=== PATIENT | male | born 1960 | race Two or more races ===

== ENCOUNTER 2017-01-08 23:26 | Inpatient (IN) | payer MEDICAID ==
[~2017-01-08] VITALS: Ht 190.5 cm; Wt 104.3 kg
[~2017-01-08 23:26] MED LIST: WARF5TAB77 PO
--- NOTE | 2017-01-09 00:44 | NUR ---
PT BIBSELF AMBULATORY TO ER BED 8 C/OP "ABD PAIN SINCE YESTERDAY MORNING WITH VOMITING X1" PT AOX3 RR EVEN AND UNLABORED. NO SOB NOTED. NAD NOTED. NO NVD AT THIS TIME. PT GOWNED AND PLACED ON MONITOR WAITING FOR MD KENT.
--- NOTE | 2017-01-09 00:45 | NUR ---
DR. YANES AT BEDSIDE FOR EVLA.
--- NOTE | 2017-01-09 01:02 | NUR ---
BLOOD DRAW AND URINE SENT TO LAB.
[2017-01-09] MEDS ORDERED: DILTIAZEM HCL 50 MG IV ONE (01:06)
[2017-01-09 01:18] LABS: BASOPHILS % (AUTO) 0.4 % (0.0-2.0); EOSINOPHILS # (AUTO) 0.8 /CMM (0.0-0.7); EOSINOPHILS % (AUTO) 7.4 % (0.0-6.0); HEMATOCRIT 46 % (39-51); HEMOGLOBIN 15.4 g/dL (13.5-17.5); LYMPHOCYTES # (AUTO) 2.1 /CMM (0.8-4.8); LYMPHOCYTES % (AUTO) 18.9 % (20.0-44.0); MEAN CORPUSCULAR HEMOGLOBIN 29 PG (26.0-33.0); MEAN CORPUSCULAR HGB CONC 33 g/dl (31.0-36.0); MEAN CORPUSCULAR VOLUME 88 fL (80-96); MONOCYTES # (AUTO) 0.6 /CMM (0.1-1.30); MONOCYTES % (AUTO) 5.8 % (2.0-12.0); NEUTROPHILS # (AUTO) 7.6 /CMM (1.8-8.9); NEUTROPHILS % (AUTO) 67.5 % (43.0-81.0); PLATELET COUNT (AUTO) 183 /CMM (150-450); RDW COEFFICIENT OF VARIATION 12.9 (11.5-15.0); RED BLOOD CELL COUNT(AUTO) 5.26 MIL/uL (4.5-6.0); WHITE BLOOD COUNT (AUTO) 11.2 K/uL (4.3-11.0)
[2017-01-09] MEDS ORDERED: DILTIAZEM HCL 50 MG IV IV ONE (01:30)
[2017-01-09 01:31] LABS: CALCIUM, SERUM 9.5 mg/dL (8.5-10.1); POTASSIUM 4.2 mmol/L (3.5-5.1)
--- NOTE | 2017-01-09 01:33 | NUR ---
called in for U/S gallbladder @ 00:55 but was canceled. No one informed me. Confirmed cancellation with Dr. Parra at 01:30.
[2017-01-09 01:36] LABS: APPEARANCE,URINE CLEAR (CLEAR); BILIRUBIN,URINE NEGATIVE (NEGATIVE); BLOOD, URINE NEGATIVE Ery/uL (NEGATIVE); COLOR,URINE YELLOW (YELLOW); KETONES,URINE NEGATIVE (NEGATIVE); LEUKOCYTE ESTERASE ,URINE NEGATIVE (NEGATIVE); NITRITE, URINE NEGATIVE (NEGATIVE); PROTEIN,URINE NEGATIVE (NEGATIVE); UGLUCOSE NEGATIVE (NEGATIVE); UROBILINOGEN,URINE 0.2 EU/dL (0.2)
[2017-01-09 01:37] LABS: BILIRUBIN,DIRECT 0.1 mg/dL (0.0-0.2); BILIRUBIN,TOTAL 0.6 mg/dL (0.2-1.0); TOTAL PROTEIN, SERUM 7.7 g/dL (6.4-8.2)
[2017-01-09 01:39] LABS: TROPONIN I 0.171 ng/mL (0.00-0.056)
[2017-01-09] MEDS ORDERED: FURO20TA4 PO (01:55)
[2017-01-09] MEDS ORDERED: LISI-607 PO (01:55)
[2017-01-09] MEDS ORDERED: OMEP20CA10 PO (01:55)
[2017-01-09] MEDS ORDERED: ASPI-605 PO (01:55)
[2017-01-09] MEDS ORDERED: ONDANSETRON HCL/PF 4 MG/2 ML VIAL ONE (01:57)
[2017-01-09] MEDS ORDERED: MORPHINE SULFATE INJ 2 MG/ML DISP.SYRIN IV ONE (02:00)
[2017-01-09] MEDS ORDERED: ASPIRIN 325 MG TABLET PO ONE (02:00)
[2017-01-09] MEDS ORDERED: ONDANSETRON HCL/PF 4 MG/2 ML VIAL IV ONE (02:00)
[2017-01-09] MEDS ORDERED: MORPHINE SULFATE INJ 10 MG/ML DISP.SYRIN ONE (02:00)
[2017-01-09] MEDS ORDERED: ASPIRIN 325 MG TABLET ONE (02:05)
--- NOTE | 2017-01-09 02:15 | NUR ---
PT ASSIGNED TO [facility] BED 118-2
--- NOTE | 2017-01-09 02:21 | NUR ---
DR. YANES AT BEDSIDE SPEAKING TO PT REGARDING RESULTS.
[2017-01-09] MEDS ORDERED: ZOLPIDEM TARTRATE 5 MG TABLET PO PRN (02:30)
[2017-01-09] MEDS ORDERED: ONDANSETRON HCL/PF 4 MG/2 ML VIAL IVP PRN (02:30)
[2017-01-09] MEDS ORDERED: MAGNESIUM HYDROXIDE 30 ML UDC PO PRN (02:30)
[2017-01-09] MEDS ORDERED: Z GUARD REMEDY 2 OZ OINT TP PRN (02:30)
[2017-01-09] MEDS ORDERED: MAG HYDROX/AL HYDROX/SIMETH 30 ML UDC PO PRN (02:30)
[2017-01-09] MEDS ORDERED: ACETAMINOPHEN 325 MG TABLET PO PRN (02:30)
--- NOTE | 2017-01-09 02:31 | NUR ---
REPORT GIVEN LISET AGUSTIN FOR BED 118-2
[2017-01-09 02:40] VITALS: BP 135/81
--- NOTE | 2017-01-09 02:44 | NUR ---
PT TRANSFERRED PER ACLS PROTOCOL.
[2017-01-09] MEDS ORDERED: IV NS 0.9% 1,000 ML IV ONE (03:00)
--- NOTE | 2017-01-09 03:00 | NUR ---
FAMILY LITERACY COORDINATOR INITIAL NOTE PT ARRIVED ON FLOOR IN NO ACUTE DISTRESS AT THIS TIME. ON TELE WITH Page-ERINER 104. PT IS A/O X4 AND ABLE TO MAKE NEEDS KNOWN BUT MAINLY URDU SPEAKING. SON AT BEDSIDE. PT IS ABLE TO WALK TO BED FROM BATHROOM. BREATHING IS NORMAL WITH ADEQUATE CHEST RISE/FALL. HAS RAC 18G THAT IS CLEAN DRY AND INTACT RUNNING NS @100CC. COMFORT AND SAFETY MEASURES TO BE ENSURED DURING THE SHIFT. WILL CONTINUE TO MONITOR FOR ANY CHANGES.
[2017-01-09] MEDS ORDERED: MAGNESIUM HYDROXIDE 30 ML UDC ONE (03:30)
[2017-01-09] MEDS ORDERED: HYDROCODONE/APAP 5/325MG 1 EACH TABLET ONE (03:30)
[2017-01-09] MEDS: HYDROCODONE/APAP 5/325MG 1 EACH TABLET PO PRN ×2 (03:31→16:20)
[2017-01-09 04:00] VITALS: BP 126/84
[2017-01-09 07:21] LABS: BASOPHILS % (AUTO) 0.1 % (0.0-2.0); EOSINOPHILS # (AUTO) 0.9 /CMM (0.0-0.7); EOSINOPHILS % (AUTO) 9.3 % (0.0-6.0); HEMATOCRIT 42 % (39-51); HEMOGLOBIN 14.4 g/dL (13.5-17.5); LYMPHOCYTES # (AUTO) 1.6 /CMM (0.8-4.8); LYMPHOCYTES % (AUTO) 16.4 % (20.0-44.0); MEAN CORPUSCULAR HEMOGLOBIN 30 PG (26.0-33.0); MEAN CORPUSCULAR HGB CONC 34 g/dl (31.0-36.0); MEAN CORPUSCULAR VOLUME 87 fL (80-96); MONOCYTES # (AUTO) 0.6 /CMM (0.1-1.30); MONOCYTES % (AUTO) 6.3 % (2.0-12.0); NEUTROPHILS # (AUTO) 6.5 /CMM (1.8-8.9); NEUTROPHILS % (AUTO) 67.9 % (43.0-81.0); PLATELET COUNT (AUTO) 167 /CMM (150-450); RDW COEFFICIENT OF VARIATION 13.1 (11.5-15.0); WHITE BLOOD COUNT (AUTO) 9.6 K/uL (4.3-11.0)
--- NOTE | 2017-01-09 07:30 | NUR ---
RN FERMÍN RECEIVED PATIENT AWAKE, LYING ON BED WITH ON GOING IVF RUNNING AT 100 ML AFEBRILE NO CHEST PAIN AT THE MOMENT ENCOURAGED TO REST MONITORED ACCORDINGLY
[2017-01-09 07:38] LABS: CALCIUM, SERUM 8.6 mg/dL (8.5-10.1); CREATININE 0.9 mg/dL (0.6-1.3); MAGNESIUM 2.2 mg/dL (1.8-2.4); PHOSPHORUS 3.8 mg/dL (2.5-4.9); POTASSIUM 4.1 mmol/L (3.5-5.1)
[2017-01-09 08:00] VITALS: BP_SYST 127; BP_SYST 148; BP_DIAS 79; BP_DIAS 80
[2017-01-09] MEDS ORDERED: FUROSEMIDE 20 MG TABLET PO SCH (09:00)
[2017-01-09 09:11] LABS: INR 1.45 (0.87-1.13); PROTHROMBIN TIME 15.1 SECS (9.5-12.7)
[2017-01-09] MEDS: methylPREDNISolone SOD SUCC 40 MG/ML VIAL IV SCH (09:19)
[2017-01-09] MEDS: PANTOPRAZOLE 40 MG TABLET.DR PO SCH (09:19)
[2017-01-09] MEDS: ASPIRIN EC 81 MG TABLET.DR PO SCH (09:20)
[2017-01-09] MEDS: LISINOPRIL (5MG) 5 MG TABLET PO SCH (09:20)
[2017-01-09 09:49] LABS: EOSINOPHILS % (MANUAL) 7 % (0-4); LYMPHOCYTES % (MANUAL) 9 % (16-48); MONOCYTES % (MANUAL) 7 % (0-11.0); NEUTROPHILS % (MANUAL) 77 (42-76)
[2017-01-09 12:00] VITALS: BP 127/79
[2017-01-09] MEDS ORDERED: DILTIAZEM HCL CD 240 MG PO SCH (14:00)
[2017-01-09 14:05] LABS: THYROID STIMULATING HORMONE 2.31 uIU/mL (0.358-3.74)
[2017-01-09 14:45] LABS: MAGNESIUM 2.1 mg/dL (1.8-2.4)
[2017-01-09 16:00] VITALS: BP_SYST 120; BP_SYST 124; BP_DIAS 79; BP_DIAS 81
[2017-01-09] MEDS: DILTIAZEM HCL CD 240 MG PO SCH (16:12)
[2017-01-09] MEDS ORDERED: WARFARIN SODIUM 5 MG TABLET PO SCH (17:00)
[2017-01-09 20:00] VITALS: BP 135/86
[2017-01-09] MEDS: MUPIROCIN OINT 2% 22 GM TUBE SCH (20:56)
[2017-01-09] MEDS: ENOXAPARIN SODIUM 100 MG/ML DISP.SYRIN SQ SCH (20:57)
[2017-01-10] VITALS: BP 109/72
--- NOTE | 2017-01-10 01:11 | NUR ---
WHEAT AND OATS FLAKE MILLER; REPORT GIVEN TO RN FOR CONTINUITY OF CARE. PT IS STABLE, COMFORTABLY RESTING. DENIED CHEST PAIN. PT IS AMBULATORY, AFLUTTER ON MONITOR.
[2017-01-10 04:00] VITALS: BP 144/69
[2017-01-10 06:31] LABS: BASOPHILS % (AUTO) 0.1 % (0.0-2.0); EOSINOPHILS % (AUTO) 0.4 % (0.0-6.0); HEMATOCRIT 44 % (39-51); HEMOGLOBIN 14.9 g/dL (13.5-17.5); LYMPHOCYTES # (AUTO) 1.4 /CMM (0.8-4.8); LYMPHOCYTES % (AUTO) 11.8 % (20.0-44.0); MEAN CORPUSCULAR HEMOGLOBIN 30 PG (26.0-33.0); MEAN CORPUSCULAR HGB CONC 34 g/dl (31.0-36.0); MEAN CORPUSCULAR VOLUME 88 fL (80-96); MONOCYTES # (AUTO) 0.6 /CMM (0.1-1.30); MONOCYTES % (AUTO) 5.1 % (2.0-12.0); NEUTROPHILS # (AUTO) 9.7 /CMM (1.8-8.9); NEUTROPHILS % (AUTO) 82.6 % (43.0-81.0); PLATELET COUNT (AUTO) 184 /CMM (150-450); RDW COEFFICIENT OF VARIATION 12.9 (11.5-15.0); RED BLOOD CELL COUNT(AUTO) 5.03 MIL/uL (4.5-6.0); WHITE BLOOD COUNT (AUTO) 11.8 K/uL (4.3-11.0)
--- NOTE | 2017-01-10 06:40 | NUR ---
ETHNIC STUDIES PROFESSOR CLOSING NOTE ENDORSED PT IN NO ACUTE DISTRESS AT THIS TIME. ON TELE WITH AFLUTTER 80' PT IS A/O X4 AND ABLE TO MAKE NEEDS KNOWN BUT MAINLY UKRAINIAN SPEAKING. PT IS ABLE TO WALK TO BED FROM BATHROOM. BREATHING IS NORMAL WITH ADEQUATE CHEST RISE/FALL. HAS RAC 18G THAT IS CLEAN DRY AND INTACT RUNNING NS @100CC. COMFORT AND SAFETY MEASURES TO BE ENSURED DURING THE SHIFT. WILL CONTINUE TO MONITOR FOR ANY CHANGES.
[2017-01-10 07:03] LABS: CALCIUM, SERUM 9.1 mg/dL (8.5-10.1); MAGNESIUM 2.3 mg/dL (1.8-2.4); PHOSPHORUS 4.1 mg/dL (2.5-4.9); POTASSIUM 4.5 mmol/L (3.5-5.1)
--- NOTE | 2017-01-10 07:15 | NUR ---
RN INITIAL NOTES: REC'D PT AWAKE ON BED, NOT IN ANY DISTRESS, A/O X 4, DENIES ANY PAIN/DISCOMFORT AT THIS TIME. ON ROOM AIR, SATURATING 95%. ON TELEMONITOR, JUDITH. HAS R AC G18 SL, FLUSHING WELL, NO S/SX OF INFECTION/INFILTRATION NOTED. PROVIDED COMFORT & SAFETY MEASURES. BED KEPT LOW & IN LOCKED POS. CALL LIGHT PLACED W/IN REACH. WILL CONTINUE TO MONITOR AND ATTEND PT NEEDS.
[2017-01-10 08:00] VITALS: BP 136/89
[2017-01-10] MEDS: ASPIRIN EC 81 MG TABLET.DR PO SCH (08:35)
[2017-01-10] MEDS: methylPREDNISolone SOD SUCC 40 MG/ML VIAL IV SCH (08:35)
[2017-01-10] MEDS: LISINOPRIL (5MG) 5 MG TABLET PO SCH (08:35)
[2017-01-10] MEDS: DILTIAZEM HCL CD 240 MG PO SCH (08:35)
[2017-01-10] MEDS: PANTOPRAZOLE 40 MG TABLET.DR PO SCH (08:36)
[2017-01-10] MEDS: ENOXAPARIN SODIUM 100 MG/ML DISP.SYRIN SQ SCH ×2 (08:36→21:32)
[2017-01-10 08:37] LABS: INR 1.29 (0.87-1.13); PROTHROMBIN TIME 13.4 SECS (9.5-12.7)
--- NOTE | 2017-01-10 09:00 | NUR ---
RN NOTES: PT SEEN & EXAMINED BY DR. SAM. SAMUEL UPDATED ABOUT PT'S CONDITION.
[2017-01-10] MEDS: MUPIROCIN OINT 2% 22 GM TUBE SCH ×2 (09:08→21:00)
--- NOTE | 2017-01-10 11:19 | NUR ---
RN NOTES: PT SEEN & EXAMINED BY DR. FLOYD AND DR. FAULKNER W/ ORDERS MADE & CARRIED OUT. PER DR. FLOYD WILL DO EGD W/ COLONOSCOPY TOMORROW. PLEASE SECURE CONSENT. KEEP PT NPO POST MIDNIGHT. BOWEL PREPARATION: CLEAR DIET AT DINNER AND GIVE GOLYTELY X1. DO ULTRASOUND OF THE GALLBLADDER AND LIVER AND RELAY RESULT. PT MADE AWARE OF THE ORDERS. CONSENT SIGNED BY PT AND PLACED IN CHART. PER DR. FAULKNER, OKAY FOR PT TO HAVE SHOWER.
--- NOTE | 2017-01-10 11:30 | NUR ---
RN NOTES: DR. FLOYD MADE AWARE OF CT ABDOMEN AND PELVIS RESULT DONE YESTERDAY. PER MD, OKAY TO DO DULCE OF GALLBLADDER ONLY AND RELAY RESULT ONCE IN. DULCE OF GALLBLADDER RESULT RELAYED. NURSING CRIPPLE CUTTER CATA CALLED DR. FLOYD TO CONFIRM EGD/COLONOSCOPY SCHEDULE GHAZAL. PER CATA, SHE WILL INFORM RN RE: CONFIRMED SCHEDULE OF PROCEDURE, POSSIBLY 11-11:30AM. PT AWARE.
[2017-01-10 12:00] VITALS: BP 99/72
[2017-01-10 16:00] VITALS: BP 113/78
[2017-01-10] MEDS ORDERED: PEG 3350/NA SULF,BICARB,CL/KCL 4,000 ML BOTTLE PO ONE (16:30)
[2017-01-10] MEDS ORDERED: WARFARIN SODIUM 5 MG TABLET PO SCH (17:00)
--- NOTE | 2017-01-10 18:53 | NUR ---
RN CLOSING NOTES: NO ACUTE CHANGES NOTED W/IN SHIFT. PT TOLERATED ROOM AIR, NO SOB. ON TELEMONITOR, STILL A.FLUTTER. R AC G18 SL, KEPT PATENT & INTACT W/ NO S/SX OF INFECTION/INFILTRATION NOTED. PT REMINDED ABOUT THE SCHEDULED PROCEDURE (EGD/COLONOSCOPY) TOMORROW AT 11AM PER NURSING SUP CATA. INSTRUCTED TO FINISH GOLYTELY AND NEED TO BE NPO POST [place] BOWEL PREP FOR GHAZAL'S PROCEDURE. PT VERBALIZED UNDERSTANDING. PT KEPT WELL RESTED. NEEDS ATTENDED. BED KEPT LOW & IN LOCKED POS. CALL LIGHT PLACED W/IN REACH. WILL ENDORSE TO PM RN FOR MELI.
--- NOTE | 2017-01-10 19:30 | NUR ---
RN INITIAL NOTES RECEIVED THE PATIENT AWAKE, A/OX 4, FAMILY AT BEDSIDE. ON ROOM AIR, WITH NO S/S OF RESP DISTRESS. DENIES ANY PAIN. CURRENTLY CONTROLLED AFIB/AFLUTTER ON THE MONITOR, HR 70'S. CONTINENT, AMBULATORY. RIGHT AC 18G SL FLUSHED AND PATENT, NO S/S OF INFILTRATION/INFECTION, DRESSING CDI. BED LOW AND LOCKED, SIDERAILS UP, CALL LIGHT WITHIN REACH. WILL MONITOR
[2017-01-10 20:00] VITALS: BP 122/61
[2017-01-10] MEDS ORDERED: BISACODYL (5 MG) 5 MG TABLET.DR ONE (21:26)
[2017-01-10] MEDS ORDERED: BISACODYL (5 MG) 5 MG TABLET.DR PO PRN (21:30)
[2017-01-10] MEDS ORDERED: NA PHOS,M-B/NA PHOS,DI-BA 1 EA ENEMA RC PRN (21:30)
--- NOTE | 2017-01-10 21:38 | NUR ---
RN NOTES CALLED DR FLOYD TO GIVE HIM AN UPDATE ABOUT PATIENT'S BOWEL PREP, PT'S STOOL IS BLACK LIQUID WITH SOME SOLIDS. PER DR FLOYD, GIVE BISACODYL 5MG X 4 PILLS (TOTAL 20MG). IF BY 0600 TOMORROW STOOL IS STILL NOT CLEAR, INITIATE FLEET ENEMAS Q2H UNTIL CLEAR. ALSO CLARIFIED IF OK TO SCHEDULED NIGHT LOVENOX 100MG, PER MD OK TO GIVE. DID NOT ADMINISTER SCHEDULED BACTROBAN. THERE IS NO MICROBIOLOGY STATING PRESENCE OF MRSA NARES. SENT MRSA SWAB TO LAB
[2017-01-11] VITALS: BP 122/71
[2017-01-11 04:00] VITALS: BP 121/66
--- NOTE | 2017-01-11 06:30 | NUR ---
RN CLOSING NOTES PT REMAINS STABLE OF THE MOMENT. ALL DUE MEDS GIVEN, AM CARE PROVIDED. LAST BOWEL MOVEMENT NOTED HAD SEMI-CLEAR WATERY STOOL. WILL ENDORSE MELI TO AM RN
[2017-01-11 06:47] LABS: BASOPHILS % (AUTO) 0.1 % (0.0-2.0); EOSINOPHILS % (AUTO) 0.1 % (0.0-6.0); HEMATOCRIT 42 % (39-51); LYMPHOCYTES # (AUTO) 1.4 /CMM (0.8-4.8); LYMPHOCYTES % (AUTO) 11.8 % (20.0-44.0); MEAN CORPUSCULAR HEMOGLOBIN 30 PG (26.0-33.0); MEAN CORPUSCULAR HGB CONC 34 g/dl (31.0-36.0); MEAN CORPUSCULAR VOLUME 88 fL (80-96); MONOCYTES # (AUTO) 0.7 /CMM (0.1-1.30); MONOCYTES % (AUTO) 5.8 % (2.0-12.0); NEUTROPHILS # (AUTO) 9.9 /CMM (1.8-8.9); NEUTROPHILS % (AUTO) 82.2 % (43.0-81.0); PLATELET COUNT (AUTO) 174 /CMM (150-450); RDW COEFFICIENT OF VARIATION 13.1 (11.5-15.0); RED BLOOD CELL COUNT(AUTO) 4.72 MIL/uL (4.5-6.0)
[2017-01-11 07:07] LABS: ALBUMIN 3.5 g/dL (3.4-5.0); BILIRUBIN,TOTAL 0.9 mg/dL (0.2-1.0); CALCIUM, SERUM 8.8 mg/dL (8.5-10.1); CREATININE 0.9 mg/dL (0.6-1.3); MAGNESIUM 2.3 mg/dL (1.8-2.4); PHOSPHORUS 3.7 mg/dL (2.5-4.9); POTASSIUM 4.2 mmol/L (3.5-5.1)
[2017-01-11 07:09] LABS: INR 1.27 (0.87-1.13); PROTHROMBIN TIME 13.2 SECS (9.5-12.7)
--- NOTE | 2017-01-11 07:30 | NUR ---
RN NOTE PT STABLE, SLEEPING IN BED, PER REPORT PT HAD CLEAR STOOL AND READY FOR COLONOSCOPY, IV IN PLACE, NO IVF, TELEMONITOR IN PLACE, PT NPO, CALL LIGHT WITHIN REACH, BED IN LOW AND LOCKED POSITION, WILL MONITOR PT.
[2017-01-11 08:00] VITALS: BP 113/65
[2017-01-11] MEDS: methylPREDNISolone SOD SUCC 40 MG/ML VIAL IV SCH (08:25)
[2017-01-11] MEDS: MUPIROCIN OINT 2% 22 GM TUBE SCH (08:26)
[2017-01-11] MEDS ORDERED: ANESTHESIA TRAY IN PYXIS 1 EA TRAY MC ONE (10:07)
[2017-01-11] MEDS ORDERED: ENOX40DI SQ (10:26)
[2017-01-11 12:00] VITALS: BP 124/77
--- NOTE | 2017-01-11 12:15 | NUR ---
RN NOTE PT CAME BACK FROM COLONOSCOPY/EGD, AOX4, DENIES PAIN, VS STABLE, HR 118 BPM. WILL MONITOR PT CLOSELY.
[2017-01-11] MEDS: LISINOPRIL (5MG) 5 MG TABLET PO SCH (12:29)
[2017-01-11] MEDS: ASPIRIN EC 81 MG TABLET.DR PO SCH (12:29)
[2017-01-11] MEDS: DILTIAZEM HCL CD 240 MG PO SCH (12:30)
[2017-01-11] MEDS ORDERED: IV LR 1000 ML 1,000 ML IV PRN (12:30)
[2017-01-11] MEDS: ENOXAPARIN SODIUM 100 MG/ML DISP.SYRIN SQ SCH (12:32)
[2017-01-11 14:00] VITALS: BP 132/83
--- NOTE | 2017-01-11 14:40 | NUR ---
RN NOTE PT HR 125-127 BPM A FLUTTER, CALLED DR BRITO HE ORDERED 12 LEAD EKG STAT AND LET HIM KNOW RESULTS.
[2017-01-11 15:30] VITALS: BP 132/83
[2017-01-11] MEDS ORDERED: METOPROLOL TARTRATE 50 MG TABLET PO SCH (15:30)
--- NOTE | 2017-01-11 15:30 | NUR ---
RN NOTE PT GIVEN METOPROLOL 100MG PO ONCE, HR SLOWED DOWN TO 61 BPM.
--- NOTE | 2017-01-11 16:16 | NUR ---
RN NOTE PT DISCHARGED HOME WITH SON, DARYL, VS STABLE, PT STABLE, DISCHARGE INSTRUCTIONS PROVIDED TO PT, EXIT CARE DONE, BELONGING LIST SIGNED AND PROVIDED TO PT, PT WAS INSTRUCTED TO FOLLOW UP WITH PCP TOMORROW, AND WITH DR. FLOYD WITHIN 1 WEEK.
[2017-01-11] MEDS ORDERED: SUCRALFATE 1 G TABLET PO SCH (17:30)
[2017-01-12] MEDS ORDERED: PANTOPRAZOLE 40 MG TABLET.DR PO SCH (07:30)
== END 2017-01-11 16:40 | disposition home or self-care (01) | DRG 241 ==
LOC: ER 23:30 → TELE1 01-09 02:35
PROVIDERS: ADMIT Family Medicine; ATTEND Family Medicine
DX: K25.4 Chronic or unspecified gastric ulcer with hemorrhage (principal); I21.A1 Myocardial infarction type 2; D68.59 Other primary thrombophilia; I48.92 Unspecified atrial flutter; I50.9 Heart failure, unspecified; I11.0 Hypertensive heart disease with heart failure; I69.354 Hemiplegia and hemiparesis following cerebral infarction affecting left non-dominant side; E86.0 Dehydration; I48.91 Unspecified atrial fibrillation; D62 Acute posthemorrhagic anemia; K65.4 Sclerosing mesenteritis; F17.210 Nicotine dependence, cigarettes, uncomplicated; K21.9 Gastro-esophageal reflux disease without esophagitis; Z79.01 Long term (current) use of anticoagulants; Z95.2 Presence of prosthetic heart valve; K44.9 Diaphragmatic hernia without obstruction or gangrene; Z95.1 Presence of aortocoronary bypass graft
CPT/HCPCS: 36415; 71010-TC; 76705-TC; 80048-TC; 80053-TC; 80061-TC; 80076-TC; 81000-TC; 82272-TC; 82306; 83690-TC; 83735-TC; 84100-TC; 84439-TC; 84443-TC; 84484-TC; 85025-TC; 85610-TC; 86850-TC; 87081-TC; 88305-TC; 88313-TC; 88342; 93307-TC; A4606; J1650; J2270; J2405; J2704; J2920; J3490; J7030; J7120; Z7610